=== PATIENT | female | born 1980 | race Caucasian/White ===

== ENCOUNTER → 2016-08-10 | Outpatient (CLI) | payer BC, MEDICAID ==
--- NOTE | 2016-08-10 11:02 | RADIOLOGY REPORT (SQ) ---
EXAM DESCRIPTION: U/S ABDOMEN LIMITED W/O DOP COMPLETED DATE/TIME: 08/10/2016 10:35 am REASON FOR STUDY: RUQ PAIN R10.11 RIGHT UPPER QUADRANT PAIN COMPARISON: None. TECHNIQUE: Dynamic and static grayscale images acquired of the abdomen and recorded on PACS. Additio nal selected color Doppler and spectral images recorded. LIMITATIONS: None. FINDINGS: PANCREAS: No masses. Visualized pancreatic duct normal caliber. LIVER: 16.1 cm. Normal echotexture. LIVER VASCULATURE: Normal directional flow of the main portal vein and hepatic veins. GALLBLADDER: No stones. Normal wall thickness. No pericholecystic fluid. ULTRASOUND-DETECTED WASHINGTON'S SIGN: Negative. INTRAHEPATIC DUCTS AND COMMON DUCT: Common bile duct is normal at 4 mm. No intrahepatic ductal dilat ation is present. INFERIOR VENA CAVA: Normal flow. AORTA: No aneurysm. RIGHT KIDNEY: Normal size, 10.7 cm. There is slight thinning of the renal cortex. There is increas ed echogenicity of the medullary pyramids. There is no hydronephrosis or hydroureter. PERITONEAL AND RIGHT PLEURAL SPACE: No ascites or effusions. OTHER: No other significant findings. IMPRESSION: Possible medullary sponge kidney. No other abnormality is seen. TECHNICAL DOCUMENTATION: JOB ID: [id number] [employer]- All Rights Reserved
== END ==
LOC: RAD 09:04
PROVIDERS: ATTEND Family Medicine
DX: R10.11 Right upper quadrant pain (principal)
CPT/HCPCS: 76705

== ENCOUNTER → 2016-08-17 | Outpatient (CLI) | payer BC, MEDICAID ==
--- NOTE | 2016-08-17 16:06 | RADIOLOGY REPORT (SQ) ---
EXAM DESCRIPTION: NM HIDA SCAN WITH CCK COMPLETED DATE/TIME: 08/17/2016 2:26 pm REASON FOR STUDY: ABDOMINAL PAIN R10.9 UNSPECIFIED ABDOMINAL PAIN COMPARISON: Abdominal ultrasound 08/10/2016 RADIONUCLIDE AND DOSE: DOSAGE RADIONUCLIDE: 5.3 millicuries Tc99m Mebrofenin. DOSAGE CCK: 1.4 micrograms. DOSAGE MORPHINE: Not required. The route of agent administration: Intravenous TECHNIQUE: Serial imaging right upper quadrant up to 60 minutes following injection of radionuclide. CCK injected after gallbladder visualized. LIMITATIONS: None. FINDINGS: LIVER: Normal visualization without areas of photopenia. INTRAHEPATIC BILE DUCTS: Normal visualization COMMON BILE DUCT: Normal visualization GALLBLADDER: Normal visualization. Calculated ejection fraction of 29%. Normal range is greater th an 35%. PHYSICAL RESPONSE: Patients presenting complaint was reproduced. IV CCK reproduced the patient's sy mptoms of right upper quadrant cramping and nausea. Imaging demonstrates reflux of biliary activity into the stomach after IV CCK OTHER: No other significant finding. IMPRESSION: The cystic duct or common duct obstruction IV CCK reproduced the patient's symptoms. There was reflux of biliary activity into the stomach. De pressed gallbladder ejection fraction of 29% TECHNICAL DOCUMENTATION: JOB ID: [id number] [employer]- All Rights Reserved
== END ==
LOC: RAD 11:55
PROVIDERS: ATTEND Family Medicine
DX: R10.9 Unspecified abdominal pain (principal)
CPT/HCPCS: 78227; A9537; Q9969; J2805

== ENCOUNTER 2016-08-28 11:17 | Observation (INO) | payer BC, MEDICAID ==
[~2016-08-28 11:17] MED LIST: DEXAMETHASONE SOD PHOSPHATE INJ 4 MG/1 ML VIAL ONE; GLYCOPYRROLATE INJ 0.4 MG/2 ML VIAL ONE; KETOROLAC TROMETHAMINE 60 MG/2 ML SDV ONE; LIDOCAINE 2% INJ-PF (20 MG/ML) 10 ML AMPUL ONE; NEOSTIGMINE METHYLSULFATE 10 MG/10 ML VIAL ONE; ONDANSETRON HCL INJ/PF 4 MG/2 ML SDV ONE; ROCURONIUM BROMIDE INJ 50 MG/5 ML VIAL IV ONE; SUCCINYLCHOLINE CHLORIDE INJ 200 MG/10 ML VIAL ONE
[2016-08-28] MEDS ORDERED: RINGERS SOLUTION,LACTATED 1,000 ML IV PRN (11:45)
[2016-08-28] MEDS ORDERED: FENTANYL CITRATE INJ/PF 100 MCG/2 ML AMPUL ONE ×3 (13:08→16:54)
[2016-08-28] MEDS ORDERED: MIDAZOLAM 2 MG/2 ML INJ ONE ×2 (13:08→15:04)
[2016-08-28] MEDS ORDERED: HYDROMORPHONE HCL INJ/PF 2 MG/ML AMPULE ONE (13:08)
[2016-08-28] MEDS ORDERED: PROPOFOL INJ 200 MG/20 ML VIAL IV ONE (13:09)
[2016-08-28] MEDS ORDERED: ACETAMINOPHEN 0 ML IV ONE (13:09)
[2016-08-28] MEDS ORDERED: BUPIVACAINE HCL 0.25 % INJ/PF (2.5 MG/1 ML) 30 ML VIAL ONE (13:22)
[2016-08-28] MEDS ORDERED: CIPROFLOXACIN 400 MG/D5W RTU 400 MG/200 ML RTUPB IV ONE (14:42)
[2016-08-28] MEDS ORDERED: EPHEDRINE SULFATE INJ 50 MG/1 ML AMPULE ONE (15:04)
[2016-08-28] MEDS ORDERED: FENTANYL CITRATE INJ/PF 250 MCG/5 ML AMPULE ONE (15:04)
[2016-08-28] MEDS ORDERED: ACETAMINOPHEN 100 ML IV ONE (15:05)
[2016-08-28] MEDS ORDERED: DEXMEDETOMIDINE INJ 80 MCG/20 ML VIAL IV ONE (15:05)
[2016-08-28 15:12] LABS: ALANINE AMINOTRANSFERASE 24 U/L (9-52); ALKALINE PHOSPHATASE 75 U/L (38-126); ASPARTATE AMINO TRANSFERASE 12 U/L (14-36); BILIRUBIN,DIRECT 0.3 mg/dL (0.0-0.4); BILIRUBIN,TOTAL 0.5 mg/dL (0.2-1.3); TOTAL PROTEIN 6.1 g/dL (6.3-8.2)
[2016-08-28] MEDS ORDERED: DIPHENHYDRAMINE HCL 50 MG/ML VIAL IV PRN (15:59)
[2016-08-28] MEDS ORDERED: FENTANYL CITRATE INJ/PF 100 MCG/2 ML AMPUL IV PRN ×3 (15:59)
[2016-08-28] MEDS ORDERED: PROMETHAZINE HCL INJ 25 MG/1 ML VIAL IV PRN ×2 (15:59)
[2016-08-28] MEDS ORDERED: MORPHINE SULFATE 10 MG/ML INJ IV PRN (15:59)
--- NOTE | 2016-08-28 16:26 | Operative Report ---
Operative Report DATE OF SURGERY: 08/28/16 PREOPERATIVE DIAGNOSIS: Biliary dyskinesia POSTOPERATIVE DIAGNOSIS: same OPERATION: Laparoscopic cholecystectomy SURGEON: DAYANA OLIVO ANESTHESIA: GA TISSUE REMOVED OR ALTERED: 1 gallbladder with contents COMPLICATIONS: None ESTIMATED BLOOD LOSS: Scant INTRAOPERATIVE FINDINGS: See below PROCEDURE: The patient was seen in the preop area for discussion with the patient and her mother about the plans for laparoscopic cholecystectomy. Explained the objectives of the operation, as well as an explanation of the wrist benefits and alternatives. She expressed understanding her to proceed to her procedure patient was placed on the gurney and taken to the operating room where general anesthesia was induced. That was exposed, prepped draped sterile fashion his medication set up for laparoscopic cholecystectomy. Surgical plan surgical timeout was conducted. A supraumbilical vertical incision made with a knife and Veress needle inserted peritoneal cavity and pneumoperitoneum established. The Veress needle was removed, 5 mm port was inserted and a 5 mm flexible viewing scope was inserted. Under direct visualization 3 additional ports were placed all in to the peritoneum without incident. Were in the subxiphoid and right upper quadrant positions. The gallbladder was distended and aspirated of approximately 20 cc of bile. Gallbladder retractors were placed on the fundus and infundibulum, and the neck of the gallbladder its junction with the cystic duct was dissected out. The anatomy here was typical. The cystic artery and cystic duct were dissected out in their entirety clearly visualized. Critical view was obtained. Multiple photos were taken. Cystic artery was clipped twice once distally twice proximally and then divided with scissors. The cystic duct was similarly clipped twice proximally once distally divided with scissors. Gallbladder removed from the liver bed using hook cautery dissection. The specimen was brought the patient to the supraumbilical port site. We returned the peritoneal cavity checked for bleeding there was none. We felt the operation was complete. Sponge and counts correct. All ports removed under direct visualization pneumoperitoneum evacuated wounds closed with 3-0 Vicryl benzoin Steri-Strips. Tolerated postop procedure well, extubated and taken to the recovery room in stable condition facility
[2016-08-28] MEDS ORDERED: OXYCODONE-ACETAMINOPHEN 5-325 MG TABLET PO PRN (20:31)
[2016-08-28 21:31] VITALS: BP 114/88
[2016-08-29] MEDS ORDERED: LANSOPRAZOLE 30 MG TAB.RAP.DR PO SCH (08:00)
--- NOTE | 2016-08-31 07:03 | DISCHARGE SUMMARY E ---
Discharge Summary NAME: YVROSE PEDERSON : 1980 AGE: 36Y ADMITTED: 08/28/2016 DISCHARGED: 08/28/2016 REASON FOR ADMISSION: Biliary dyskinesia. SUMMARY OF HOSPITALIZATION: The patient is a 36-year-old white female with a history of biliary dyskinesia who was brought into the hospital for interval cholecystectomy. Please see admission history and physical for complete record of her past history. The patient was taken to the operating room by Dr. Marin where she underwent laparoscopic cholecystectomy. Postoperatively, the patient did well, had no complications. Final path report showed cholesterolosis. By the evening of the first hospital day, she was felt to be ready for discharge home. FINAL DIAGNOSIS: Biliary dyskinesia status post laparoscopic cholecystectomy by Dr. Marin. DISPOSITION: The patient will be discharged home in the care of her family. Follow up with Dr. Marin or other member of [facility] in approximately 1-2 weeks. She will take pain medication as needed, shower, and resume any preoperative medications. DICTATING PHYSICIAN: DAYANA MARIN M.D. [id number] PHY#: [id number] ID: [id number] JOB#: [id number] ACCT: [id number] cc:DAYANA MARIN M.D. >
== END 2016-08-28 21:55 | disposition home or self-care (01) ==
LOC: 4S 11:17
PROC: 0FT44ZZ Resection of Gallbladder, Percutaneous Endoscopic Approach (ICD-10-PCS; principal; 2016-08-28 13:30)
DX: K82.8 Other specified diseases of gallbladder (principal); K81.1 Chronic cholecystitis; K21.9 Gastro-esophageal reflux disease without esophagitis; Z87.891 Personal history of nicotine dependence; Z79.899 Other long term (current) drug therapy
CPT/HCPCS: 36415; 81025; 80076; 88304 ×2; 47562; J2250; J3490 ×2; J1100; J1885; J3010 ×2; J0330; J2405; J2704; J0744; J0131; 790; J1170

== ENCOUNTER 2017-06-15 15:10 | Emergency (ER) | payer BC, MEDICAID ==
--- NOTE | 2017-06-15 15:54 | RADIOLOGY REPORT (SQ) ---
EXAM DESCRIPTION: CHEST SINGLE VIEW COMPLETED DATE/TIME: 06/15/2017 3:28 pm REASON FOR STUDY: STROKE ALERT COMPARISON: None. EXAM PARAMETERS: NUMBER OF VIEWS: One view. TECHNIQUE: Single frontal radiographic view of the chest acquired. RADIATION DOSE: NA LIMITATIONS: None. FINDINGS: LUNGS AND PLEURA: No opacities, masses or pneumothorax. No pleural effusion. MEDIASTINUM AND HILAR STRUCTURES: No masses. Contour normal. HEART AND VASCULAR STRUCTURES: Heart normal in size. Normal vasculature. BONES: No acute findings. HARDWARE: None in the chest. OTHER: No other significant finding. IMPRESSION: NO ACUTE RADIOGRAPHIC FINDING IN THE CHEST. TECHNICAL DOCUMENTATION: JOB ID: [id number] [employer] All Rights Reserved Reading location - IP/workstation name: [email or web address]
[2017-06-15 15:55] LABS: ABSOLUTE EOSINOPHILS # (AUTO) 0.1 10^3/uL (0.0-0.6); ABSOLUTE LYMPHOCYTES (AUTO) 1.2 10^3/uL (0.5-4.7); ABSOLUTE MONOCYTES (AUTO) 0.8 10^3/uL (0.1-1.4); ABSOLUTE NEUT (AUTO) 5.3 10^3/uL (1.7-8.2); BASOPHILS % (AUTO) 0.4 % (0-2); EOSINOPHILS % (AUTO) 0.8 % (0-6); HEMATOCRIT 42.8 % (36.0-47.0); HEMOGLOBIN 14.9 g/dL (12.0-15.5); LYMPHOCYTES % (AUTO) 16.3 % (13-45); MEAN CORPUSCULAR HEMOGLOBIN 28.8 pg (27.0-33.4); MEAN CORPUSCULAR HGB CONC 34.8 g/dL (32.0-36.0); MEAN CORPUSCULAR VOLUME 83 fl (80-97); MONOCYTES % (AUTO) 10.6 % (3-13); PLATELET COUNT 258 10^3/uL (150-450); RED BLOOD COUNT 5.16 10^6/uL (3.72-5.28); RED CELL DISTRIBUTION WIDTH 12.8 % (11.5-14.0); SEGMENTED NEUTROPHILS % (AUTO) 71.9 % (42-78); TOTAL CELLS COUNTED % (AUTO) 100 %; WHITE BLOOD COUNT 7.4 10^3/uL (4.0-10.5)
--- NOTE | 2017-06-15 15:55 | RADIOLOGY REPORT (SQ) ---
EXAM DESCRIPTION: CT HEAD WITHOUT COMPLETED DATE/TIME: 06/15/2017 3:40 pm REASON FOR STUDY: right side weakness r/o stroke COMPARISON: None. TECHNIQUE: Axial images acquired through the brain without intravenous contrast. Images reviewed wi th bone, brain and subdural windows. Additional sagittal and coronal reconstructions were generated. Images stored on PACS. All CT scanners at this facility use dose modulation, iterative reconstruction, and/or weight based d osing when appropriate to reduce radiation dose to as low as reasonably achievable (ALARA). [facility]: Dose Right [facility]: CareDose [facility]: Dose Right [facility]: Teradose 4D [facility]: Smart DefenCall RADIATION DOSE: CT Rad equipment meets quality standard of care and radiation dose reduction techniq ues were employed. CTDIvol: 53.2 mGy. DLP: 991 mGy-cm. mGy. LIMITATIONS: None. FINDINGS: VENTRICLES: Normal size and contour. CEREBRUM: No masses. No hemorrhage. No midline shift. No evidence for acute infarction. Normal gra y/white matter differentiation. No areas of low density in the white matter. CEREBELLUM: No masses. No hemorrhage. No alteration of density. No evidence for acute infarction. EXTRAAXIAL SPACES: No fluid collections. No masses. ORBITS AND GLOBE: No intra- or extraconal masses. Normal contour of globe without masses. CALVARIUM: No fracture. PARANASAL SINUSES: No fluid or mucosal thickening. SOFT TISSUES: No mass or hematoma. OTHER: No other significant finding. IMPRESSION: NORMAL BRAIN CT WITHOUT CONTRAST. EVIDENCE OF ACUTE STROKE: NO. COMMENT: Quality ID # [id number]: Final reports with documentation of one or more dose reduction techniques (e.g., Automated exposure control, adjustment of the mA and/or kV according to patient size, use of iterative reconstruction technique) TECHNICAL DOCUMENTATION: JOB ID: [id number] [employer]- All Rights Reserved Reading location - IP/workstation name: [email or web address]
--- NOTE | 2017-06-15 16:00 | ER Document Report ---
ED General - General Chief Complaint: S/S of Possible Stroke Stated Complaint: FACE,ARM WEAKNESS Time Seen by Provider: 06/15/17 15:45 Mode of Arrival: Ambulatory Information source: Patient - History of she that she cannot her headache started last night on the left side morning because her last night she is seen was so, Relative - 14 he came in as a nonradiating as a result was on headache resolved is is EKG changes 6 hours of negative is so negative is Cannot obtain history due to: Altered mental status Notes: 37-year-old female with a history of migraine headaches presents with complaint of headache and right-sided weakness. is at the bedside and provides the majority of the history. states that patient began complaining of a left-sided headache yesterday evening. 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 He states that around 2 PM he received a text message from her saying that her headache was increasing. When he talked to the patient on the phone her speech was slurred. Patient states that the last time she was able to use her right arm and leg was approximately 2 PM. She denies any recent head injury or prior similar symptoms. TRAVEL OUTSIDE OF THE [place] IN LAST 30 DAYS: No - HPI Onset: Yesterday Onset/Duration: Gradual Associated symptoms: Headache, Weakness. denies: Chest pain, Fever, Nausea, Vomiting, Shortness of breath Exacerbated by: Denies Relieved by: Denies Similar symptoms previously: No Recently seen / treated by doctor: No - Related Data Allergies/Adverse Reactions: meperidine HCl [From Demerol] Allergy (Verified 01/17/12 22:09) metoclopramide HCl [From Reglan] Allergy (Verified 01/17/12 22:09) Penicillins Allergy (Verified 01/17/12 22:09) Past Medical History - General Information source: Patient, Relative - Social History Smoking Status: Never Smoker Cigarette use (# per day): No Chew tobacco use (# tins/day): No Smoking Education Provided: No Frequency of alcohol use: None Drug Abuse: None Lives with: Family, Spouse/Significant other Family History: Reviewed & Not Pertinent Pulmonary Medical History: Reports: Hx Bronchitis Neurological Medical History: Reports: Hx Migraine Renal/ Medical History: Reports: Hx Ovarian Cysts GI Medical History: Reports: Hx Gastroesophageal Reflux Disease Past Surgical History: Reports: Hx Tonsillectomy - Immunizations Immunizations up to date: Yes Hx Diphtheria, Pertussis, Tetanus Vaccination: Yes Review of Systems - Review of Systems Constitutional: Weakness. denies: Fever EENT: Blurred vision Cardiovascular: denies: Chest pain Respiratory: denies: Cough, Short of breath Gastrointestinal: denies: No symptoms reported Genitourinary: No symptoms reported Female Genitourinary: No symptoms reported Musculoskeletal: No symptoms reported Skin: No symptoms reported Hematologic/Lymphatic: No symptoms reported Neurological/Psychological: Sensory change, Weakness, Loss of power, Paralysis, Headaches, Speech impairment, Numbness Physical Exam - Vital signs Vitals: Pulse Resp BP Pulse Ox 85 21 H 144/106 H 100 06/15/17 15:33 06/15/17 15:33 06/15/17 15:33 06/15/17 15:33 Interpretation: Normal, Hypertensive, Tachypneic. No: Tachycardic - General General appearance: Alert In distress: Mild - HEENT Head: Normocephalic, Atraumatic Eyes: Normal Conjunctiva: Normal Extraocular movements intact: Yes Pupils: PERRL Tympanic membrane: Normal Sinus: Normal Nasal: Normal Mucous membranes: Normal Pharynx: Normal - Respiratory Respiratory status: No respiratory distress Chest status: Nontender Breath sounds: Normal Chest palpation: Normal - Cardiovascular Rhythm: Regular Heart sounds: Normal auscultation Murmur: No Pulses: Normal: Radial - Abdominal Inspection: Normal Distension: No distension Bowel sounds: Normal Tenderness: Nontender Organomegaly: No organomegaly - Back Back: Normal, Nontender - Extremities General upper extremity: Normal inspection, Nontender, Normal color, Normal ROM , Normal temperature General lower extremity: Normal inspection, Nontender, Normal color, Normal ROM , Normal temperature, Normal weight bearing. No: Khushi's sign - Neurological Neuro grossly intact: Yes Cognition: Normal Orientation: AAOx4 Awilda Coma Scale Eye Opening: Spontaneous Wadsworth Coma Scale Verbal: Oriented Awilda Coma Scale Motor: Obeys Commands Wadsworth Coma Scale Total: 15 Speech: Normal Cranial nerves: Other - See NIH Motor strength normal: LUE, RUE, LLE, RLE Sensory: Normal - Psychological Associated symptoms: Normal mood, Tearful Course - Re-evaluation Re-evalutation: Laboratory 06/15/17 06/15/17 06/15/17 15:42 15:42 15:42 WBC 7.4 RBC 5.16 Hgb 14.9 Hct 42.8 MCV 83 MCH 28.8 MCHC 34.8 RDW 12.8 Plt Count 258 Seg Neutrophils % 71.9 Lymphocytes % 16.3 Monocytes % 10.6 Eosinophils % 0.8 Basophils % 0.4 Absolute Neutrophils 5.3 Absolute Lymphocytes 1.2 Absolute Monocytes 0.8 Absolute Eosinophils 0.1 Absolute Basophils 0.0 PT 13.3 INR 0.94 APTT 29.7 Sodium 140.6 Potassium 3.8 Chloride 104 Carbon Dioxide 24 Anion Gap 13 BUN 7 Creatinine 0.56 Est GFR ( Amer) > 60 Est GFR (Non-Af Amer) > 60 Glucose 96 POC Glucose Calcium 10.5 H Total Bilirubin 1.1 Direct Bilirubin 0.2 Neonat Total Bilirubin Not Reportable Neonat Direct Bilirubin Not Reportable Neonat Indirect Bili Not Reportable AST 16 ALT 20 Alkaline Phosphatase 78 Creatine Kinase 51 CK-MB (CK-2) Troponin I Total Protein 7.3 Albumin 5.0 06/15/17 06/15/17 15:42 15:58 WBC RBC Hgb Hct MCV MCH MCHC RDW Plt Count Seg Neutrophils % Lymphocytes % Monocytes % Eosinophils % Basophils % Absolute Neutrophils Absolute Lymphocytes Absolute Monocytes Absolute Eosinophils Absolute Basophils PT INR APTT Sodium Potassium Chloride Carbon Dioxide Anion Gap BUN Creatinine Est GFR ( Amer) Est GFR (Non-Af Amer) Glucose POC Glucose 97 Calcium Total Bilirubin Direct Bilirubin Neonat Total Bilirubin Neonat Direct Bilirubin Neonat Indirect Bili AST ALT Alkaline Phosphatase Creatine Kinase CK-MB (CK-2) 0.59 Troponin I < 0.012 Total Protein Albumin Chest X-Ray 06/15/17 00:00 IMPRESSION: NO ACUTE RADIOGRAPHIC FINDING IN THE CHEST. Head CT 06/15/17 00:00 IMPRESSION: NORMAL BRAIN CT WITHOUT CONTRAST. EVIDENCE OF ACUTE STROKE: NO. Head CTA 06/15/17 16:00 IMPRESSION: NO CTA EVIDENCE OF STENOSIS OR ANEURYSM OF THE [place] OF [place]. Neck CTA 06/15/17 16:00 IMPRESSION: NORMAL CTA OF THE EXTRA-CRANIAL CAROTID AND VERTEBRAL ARTERIES. 06/15/17 16:05 NIH performed and scored 15. [facility] contacted. 06/15/17 16:[address] Zavala from [facility] who believes the patient is a good candidate for TPA. TPA ordered at a total of 54 mg with 5.4 mg as a bolus and 46 mg over the remaining hour. Both patient and were in agreement of the administration of TPA. I did discuss the risks of potential bleeding. Patient has no contraindications at this time. 06/15/17 17:29 Transport team here. Patient appears more alert and awake. 06/16/17 00:15 37-year-old female with a history of migraine headaches presents with complaint of left-sided headache and right-sided weakness. Patient is unable to communicate and the majority of history is provided by the . reports that headache started last night. He states that she complained of left -sided headache and went to bed. 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 Around 2 PM he received a text saying that her headache was worsening and that she was experiencing right-sided weakness. Upon arrival patient is minimally verbal, unable to move her right arm or leg and reporting decreased sensation. Initial NIH score is 15. CT was immediately obtained and showed no acute process. CTA of the head and neck also were obtained and showed no acute process. Spoke to Dr. Zavala neurology on-call at [facility] who believes patient is an appropriate TPA candidate. She has no contraindications to TPA. Discussed risks and benefits of TPA with the patient and her who are agreeable at this time. TPA infusion was administered with a 5.4 mg bolus and remaining 46 mg given over an hour. Patient was transferred to [facility] in stable condition. - Vital Signs Vital signs: Temp Pulse Resp BP Pulse Ox 98.7 F 85 22 H 144/106 H 96 06/15/17 17:25 06/15/17 15:33 06/15/17 17:01 06/15/17 17:01 06/15/17 17:01 - Laboratory Result Diagrams: 06/15/17 15:42 06/15/17 15:42 Laboratory results interpreted by me: 06/15/17 15:42 Calcium 10.5 H Critical Care Note - Critical Care Note Total time excluding time spent on procedures (mins): 40 - minutes of critical care time spent in direct contact evaluating and reevaluating the patient, treating symptoms, reviewing labs and studies and speaking with family and consultants excluding any procedures Discharge - Discharge Disposition: Pending Sale To [facility] Referrals: BRANDIN GARCIA MD [Primary Care Provider] - Follow up as needed ED NIH Stroke Scale - NIH Stroke Scale When completed:: Before Alteplase *: 1. NIH scale should be completed with appropriate accompanying assessment tools. *: 2. The NIH should reflect what the patient is capable of doing and should not be coached by the clinician. 1a. Level of Consciousness: 0=Alert;keenly responsive -: 1=Drowsy -: 2=Obtunded -: 3=Coma/unresponsive or reflex to noxious stimuli. 1a. Responses: 1 1b. Orientation Questions: a. What month is it? -: b. How old are you? -: 0=Answers both questions correctly. -: 1=Answers one question correctly or patient is intubated or has orotracheal trauma. -: 2=Answers neither question correctly. 1b. Responses: 0 1c. Response to commands: a. Open and close eyes? -: b. Second Operator and release hand? -: Credit is given despite weakness. Demonstration of task is permitted. Substitute command if hands cannot be used. -: 0=Performs both tasks correctly -: 1=Performs one task correctly -: 2=Performs neither task correctly 1c. Responses: 0 2. Gaze: Establish eye contact and instruct patient to "Follow my finger" -: 0=Normal -: 1=Partial gaze palsy. Gaze is abnormal in one or both eyes, but where forced deviation or total gaze paresis is not present. -: 2=Forced deviation or total gaze paresis. 2. Responses: 0 3. Visual Addison: Sees fingers in all four quadrants. -: 0=No visual loss. -: 1=Partial hemianopsia. -: 2=Complete hemianopsia. -: 3=Bilateral hemianopsia (including Cortical blindness) 3. Responses: 0 4. Facial Movement: Instruct patient to: -: a. Show me your teeth -: b. Raise your eyebrows -: c. Close your eyes -: d. Smile -: 0=Normal symmetrical movement -: 1=Minor paralysis (flattened nasolabial fold, asymmetry on smiling). -: 2=Partial paralysis (total or near total paralysis of lower face). -: 3=Complete paralysis of upper and lower face 4. Responses: 2 5. Motor functions (left arm): Alternate sides and extend each arm with palms down (90 degrees if sitting or 45 degrees for supine). -: 0=No drift;limb holds for full 10 seconds. -: 1=Drift; limb holds but drifts down before full 10 seconds, but does not hit bed. -: 2=Some effort against gravity; limb cannot get to or maintain position. -: 3=No effort against gravity; limb falls. -: 4=No movement. -: UN=Amputation, joint fusion, explain in comments. 5. Responses (left arm): 0 5. Motor Functions (right arm): Alternate sides and extend each arm with palms down (90 degrees if sitting or 45 degrees for supine). -: 0=No drift;limb holds for full 10 seconds. -: 1=Drift; limb holds but drifts down before full 10 seconds, but does not hit bed. -: 2=Some effort against gravity; limb cannot get to or maintain position. -: 3=No effort against gravity; limb falls. -: 4=No movement. -: UN=Amputation, joint fusion, explain in comments. 5. Responses (right arm): 4 6. Motor Functions (left leg): With patient lying supine, alternate sides and extend each leg (30 degrees always while supine). -: 0=No drift, leg holds position for full 5 seconds -: 1=Drift; leg falls before full 5 seconds but does not hit bed. -: 2=Some effort against gravity, leg falls to bed but some effort against gravity. -: 3=No effort against gravity, leg falls to bed immediately. -: 4=No movement. -: UN=Amputation, joint fusion; explain in comments. 6. Responses (left leg): 0 6. Motor Functions (right leg): With patient lying supine, alternate sides and extend each leg (30 degrees always while supine). -: 0=No drift, leg holds position for full 5 seconds -: 1=Drift; leg falls before full 5 seconds but does not hit bed. -: 2=Some effort against gravity, leg falls to bed but some effort against gravity. -: 3=No effort against gravity, leg falls to bed immediately. -: 4=No movement. -: UN=Amputation, joint fusion; explain in comments. 6. Responses (right leg): 4 7. Limb Ataxia: With eyes open instruct patient to: -: a. "Touch your finger to your nose". -: b. "Touch your heel to your boswell" -: 0=Absent -: 1=Present in one limb. -: 2=Present in two limbs. -: UN=Amputation or joint fusion; explain in comments. 7. Responses: 1 7. If ataxia present choose as appropriate: Right arm 8. Sensory: Test sensation using pinprick or noxious stimuli. Test as many body parts as possible. -: 0=Normal;no sensory loss -: 1=Mile to moderate sensory loss (patient feels pin prick but is less sharp on affected side). -: 2=Severe or total sensory loss. 8. Responses: 1 9. Best Language: Instruct patient to: -: a. "Describe what you see in this picture." -: b. "Name the items in this picture." -: c. "Read these sentences." -: 0=No aphasia, normal -: 1=Mild to moderate aphasia. -: 2=Severe aphasia -: 3=Mute, global aphasia, no usable speech or auditory comprehension. 9. Responses: 1 10. Articulation, Dysarthia: Instruct patient to: -: "Read these words" or "Repeat these words" -: 0=Normal -: 1=Mild to moderate; patient may slur some words but can be understood without difficulty. -: 2=Severe; patients speech so slurred as to be unintelligible in the absence of dysphasia. -: UN=Intubated or other physical barrier, explain in comments. 10. Responses: 1 11. Extinction or inattention: 0=No abnormality -: 1= Visual, tactile, auditory, spatial, or personal inattention or extinction to bilateral simulation in one or the sensory modalities. -: 2=Profound chely-inattention or chely-inattention to more than one modality; does not recognize own hand. 11. Responses: 0 - 1600 Total Score: 15
[2017-06-15 16:04] LABS: INTERNATIONAL RATION (INR) 0.94; PARTIAL THROMBOPLASTIN TIME 29.7 SEC (23.5-35.8); PROTHROMBIN TIME 13.3 SEC (11.4-15.4)
[2017-06-15 16:13] LABS: ALANINE AMINOTRANSFERASE 20 U/L (9-52); ALKALINE PHOSPHATASE 78 U/L (38-126); ANION GAP 13 (5-19); ASPARTATE AMINO TRANSFERASE 16 U/L (14-36); BILIRUBIN,DIRECT 0.2 mg/dL (0.0-0.4); BILIRUBIN,TOTAL 1.1 mg/dL (0.2-1.3); BLOOD UREA NITROGEN 7 mg/dL (7-20); CALCIUM 10.5 mg/dL (8.4-10.2); CARBON DIOXIDE 24 mmol/L (22-30); CHLORIDE 104 mmol/L (98-107); CREATINE KINASE 51 U/L (30-135); GLUCOSE 96 mg/dL (75-110); POTASSIUM 3.8 mmol/L (3.6-5.0); SODIUM 140.6 mmol/L (137-145); TOTAL PROTEIN 7.3 g/dL (6.3-8.2)
[2017-06-15 16:25] LABS: CREATINE KINASE MB 0.59 ng/mL (<4.55)
[2017-06-15 16:28] LABS: TROPONIN I < 0.012 ng/mL
--- NOTE | 2017-06-15 16:33 | RADIOLOGY REPORT (SQ) ---
EXAM DESCRIPTION: CTA HEAD COMPLETED DATE/TIME: 06/15/2017 4:19 pm REASON FOR STUDY: stroke sx's COMPARISON: None. TECHNIQUE: Post IV contrast scanning, thin section axial imaging through the brain to evaluate the a rterial structures. Source and MIP images are saved and reviewed on PACS. Advanced 3D imaging as volume-rendering, MIPs, SSD performed? yes All CT scanners at this facility use dose modulation, iterative reconstruction, and/or weight based d osing when appropriate to reduce radiation dose to as low as reasonably achievable (ALARA). [facility]: Dose Right [facility]: CareDose [facility]: Dose Right [facility]: Teradose 4D [facility]: [email or web address] CONTRAST TYPE AND DOSE: See separate report of the same date. RENAL FUNCTION: See separate report of the same date. LIMITATIONS: None. FINDINGS: [place]: The anterior, middle, posterior cerebral arteries are all patent. No ev idence of aneurysm or focal stenosis. POSTERIOR CIRCULATION: The distal vertebral arteries are patent as is the basilar artery. No aneurysm . BRAIN: Normal. BONES: Intact as visualized. SINUSES: No fluid or mucosal thickening. OTHER: No other significant finding. IMPRESSION: NO CTA EVIDENCE OF STENOSIS OR ANEURYSM OF THE [place]. TECHNICAL DOCUMENTATION: JOB ID: [id number] Quality ID # [id number]: Final reports with documentation of one or more dose reduction techniques (e.g., Au tomated exposure control, adjustment of the mA and/or kV according to patient size, use of iterative reconstruction technique) 2010 [employer]- All Rights Reserved Reading location - IP/workstation name: [employer] [email or web address]
--- NOTE | 2017-06-15 16:35 | RADIOLOGY REPORT (SQ) ---
EXAM DESCRIPTION: CTA NECK COMPLETED DATE/TIME: 06/15/2017 4:19 pm REASON FOR STUDY: stroke sx's COMPARISON: None. TECHNIQUE: Axial dynamic scanning technique with dynamic contrast enhancement through the extra-aircraft designer nial carotid and vertebral arteries. Multiplanar reconstruction. 3-D MIPS and Volume-rendered imag es acquired at the workstation and saved to PACS. Images are reviewed in soft tissue, bone, lung w indows. All CT scanners at this facility use dose modulation, iterative reconstruction, and/or weight based d osing when appropriate to reduce radiation dose to as low as reasonably achievable (ALARA). [facility]: Dose Right [facility]: CareDose [facility]: Dose Right [facility]: Teradose 4D [facility]: [employer] CONTRAST TYPE AND DOSE: contrast/concentration: Isovue 370.00 mg/ml; Total Contrast Delivered: 70.0 ml; Total Saline Delivered: 69.0 ml RENAL FUNCTION: None required. The patient is less than 50 years old. LIMITATIONS: None. FINDINGS: AORTIC ARCH: Normal three-vessel origin. Bilateral subclavian arteries are patent. No d issection. RIGHT CAROTIDS: Patent common, internal and external carotid arteries without suggestion of significa nt stenosis or irregular plaque. No dissection. RIGHT VERTEBRAL: Patent. No dissection. LEFT CAROTIDS: Patent common, internal and external carotid arteries without suggestion of significan t stenosis or irregular plaque. No dissection. LEFT VERTEBRAL: Patent. No dissection. OTHER: No other significant finding. OTHER: 3-D reconstructions confirm findings. IMPRESSION: NORMAL CTA OF THE EXTRA-CRANIAL CAROTID AND VERTEBRAL ARTERIES. COMMENT: Quality ID #[id number]: Measurements of distal internal carotid diameter were used as the denomina tor for stenosis measurement. TECHNICAL DOCUMENTATION: JOB ID: [id number] Quality ID # [id number]: Final reports with documentation of one or more dose reduction techniques (e.g., Au tomated exposure control, adjustment of the mA and/or kV according to patient size, use of iterative reconstruction technique) 2010 [employer]- All Rights Reserved Reading location - IP/workstation name: [email or web address]
[2017-06-15] MEDS ORDERED: ALTEPLASE INJ 100 MG VIAL IV ONE (16:46)
[2017-06-15 17:51] VITALS: BP 144/106
--- NOTE | 2017-06-15 18:41 | EKG REPORT ---
SEVERITY:- BORDERLINE ECG - SINUS RHYTHM BORDERLINE T ABNORMALITIES, ANTERIOR LEADS : Confirmed by: Terrell Malloy MD 15-Jun-2017 18:41:13
== END 2017-06-15 18:10 | disposition short-term general hospital (02) ==
LOC: ER 15:10
DX: I63.9 Cerebral infarction, unspecified (principal); R41.82 Altered mental status, unspecified; R51 Headache; R53.1 Weakness; R47.81 Slurred speech; H53.8 Other visual disturbances; R29.715 NIHSS score 15
CPT/HCPCS: 93005; 99291; 96365; 36415; 82553; 82962; 82550; 85025; 85610; 85730; 80053; 84484; 71045; 70450; 70496; 70498; 93010; J2997

== ENCOUNTER 2018-01-22 10:00 | Emergency (ER) | payer BC ==
--- NOTE | 2018-01-22 10:16 | ER Document Report ---
ED Neuro Symptoms/Deficit - General Mode of Arrival: Wheelchair Information source: Relative TRAVEL OUTSIDE OF THE [place] IN LAST 30 DAYS: No <TIKA SHANE - Last Filed: 01/22/18 11:48> <BRUNO GROSS - Last Filed: 01/22/18 14:41> - General Chief Complaint: Altered Mental Status Stated Complaint: HEADACHE Time Seen by Provider: 01/22/18 10:11 Notes: 37-year-old female who presents to the emergency department today with complaints of right-sided hemiplegia. Significant other at bedside states that last night the patient had a headache but it seemed to be improving, this morning at 0845 she sent him a text indicating that the headache was getting worse, and at 0915 he was called from her place of employment after she had "collapsed to the floor". Patient has a history of complex migraines that results in right sided hemiplegia according to at bedside. Patient has been worked up extensively at [facility] for this. Patient was transferred from here on 06/15/2017 to evaluate for concerns of CVA. At [facility] the patient had a negative CTA head neck and CT head and was diagnosed with complex migraines. Patient is followed by the [facility] in [place]. Significant other at bedside states that once the patient's headache resolves, her symptoms resolve. (TIKA SHANE) - Related Data Allergies/Adverse Reactions: meperidine HCl [From Demerol] Allergy (Verified 01/22/18 10:05) metoclopramide HCl [From Reglan] Allergy (Verified 01/22/18 10:05) Penicillins Allergy (Verified 01/22/18 10:05) Past Medical History - General Information source: Patient - Social History Smoking Status: Unknown if Ever Smoked Cigarette use (# per day): No Frequency of alcohol use: None Drug Abuse: None Lives with: Family Family History: Reviewed & Not Pertinent Pulmonary Medical History: Reports: Hx Bronchitis Neurological Medical History: Reports: Hx Migraine Renal/ Medical History: Reports: Hx Ovarian Cysts GI Medical History: Reports: Hx Gastroesophageal Reflux Disease Past Surgical History: Reports: Hx Cholecystectomy, Hx Orthopedic Surgery - right shoulder x 2, Hx Tonsillectomy - Immunizations Immunizations up to date: Yes Hx Diphtheria, Pertussis, Tetanus Vaccination: Yes <TIKA SHANE - Last Filed: 01/22/18 11:48> Review of Systems - Review of Systems -: Yes ROS unobtainable due to patient's medical condition <TIKA SHANE - Last Filed: 01/22/18 11:48> Physical Exam <ACOSTATIKA - Last Filed: 01/22/18 11:48> <BRUNO GROSS - Last Filed: 01/22/18 14:41> - Vital signs Vitals: Temp 98.9 F 01/22/18 10:08 - Notes Notes: Physical Exam: General: Appears to be unresponsive but is in fact alert and able to answer questions by nodding head and giving thumbs up/down with left hand. HEENT: Normocephalic. Atraumatic. Patient . Oropharynx clear. Neck: Supple. No carotid bruits. Respiratory: No respiratory distress. Clear and equal breath sounds bilaterally. Cardiovascular: Regular rate and rhythm. Abdominal: Normal Inspection. No distension. Normal Bowel Sounds. Back: No deformity or step off. Extremities: Moves all four extremities. Upper extremities: Left wrist in splint. Normal ROM. Lower extremities: Normal inspection. No edema. Normal ROM. Neurological: Normal cognition. Right sided hemiplagia consistent with her previous complex migraines. Psychological: Normal affect. Normal Mood. Skin: Warm. Dry. Normal color. (TIKA SHANE) Course - Laboratory Result Diagrams: 01/22/18 10:16 01/22/18 10:16 <ACOSTATIKA - Last Filed: 01/22/18 11:48> - Laboratory Result Diagrams: 01/22/18 10:16 01/22/18 10:16 <BRUNO GROSS - Last Filed: 01/22/18 14:41> - Re-evaluation Re-evalutation: 01/22/18 12:40 Patient's headache is somewhat improved, her right hemiplegia has resolved at this time. 01/22/18 14:39 Patient is feeling much better now and smiling. Her hemiaplasia remains completely resolved and she is anxious to go home. (BRUNO GROSS) - Vital Signs Vital signs: Temp Pulse Resp BP Pulse Ox 98.9 F 12 111/71 96 01/22/18 10:08 01/22/18 13:01 01/22/18 13:01 01/22/18 13:01 - Laboratory Laboratory results interpreted by me: 01/22/18 10:16 Chloride 108 H Glucose 113 H AST 13 L Discharge <TIKA SHANE - Last Filed: 01/22/18 11:48> <BRUNO GROSS - Last Filed: 01/22/18 14:41> - Discharge Clinical Impression: Hemiplegic migraine Qualifiers: Status migrainosus presence: without status migrainosus Intractability: not intractable Qualified Code(s): G43.409 - Hemiplegic migraine, not intractable, without status migrainosus Condition: Stable Disposition: HOME, SELF-CARE Additional Instructions: You appear to have had another hemiplegic migraine headache. All your symptoms and deficits have resolved at this time. You should continue your regular medications. Follow-up with your primary care provider and your neurologist to let them know about this episode. RETURN TO THE EMERGENCY ROOM IF ANY NEW OR WORSENING SYMPTOMS. Referrals: BRANDIN GARCIA MD [Primary Care Provider] - Follow up as needed Scribe Attestation: 01/22/18 11:04 I personally performed the services described in the documentation, reviewed and edited the documentation which was dictated to the scribe in my presence, and it accurately records my words and actions. (BRUNO GROSS) Scribe Documentation - Scribe Written by More:: More Cross, 08/18/2017 1151 acting as scribe for :: Anthony <TIKA SHANE - Last Filed: 01/22/18 11:48>
[2018-01-22] MEDS ORDERED: NORMAL SALINE 1000 ML 1,000 ML IV ONE (10:19)
[2018-01-22] MEDS ORDERED: PROCHLORPERAZINE EDISYLATE INJ 10 MG/2 ML VIAL IV ONE (10:19)
[2018-01-22] MEDS ORDERED: DIPHENHYDRAMINE HCL 50 MG/ML VIAL IV ONE ×2 (10:19→12:42)
[2018-01-22] MEDS ORDERED: MAGNESIUM SULFATE/D5W 1 GM/100 ML RTUPB IV ONE ×2 (10:22→12:41)
[2018-01-22] MEDS ORDERED: KETOROLAC TROMETHAMINE INJ/PF 30 MG/1 ML SDV IV ONE ×2 (10:22→12:42)
[2018-01-22 10:28] LABS: ABSOLUTE BASOPHILS # (AUTO) 0.1 10^3/uL (0.0-0.2); ABSOLUTE EOSINOPHILS # (AUTO) 0.1 10^3/uL (0.0-0.6); ABSOLUTE LYMPHOCYTES (AUTO) 0.8 10^3/uL (0.5-4.7); ABSOLUTE MONOCYTES (AUTO) 0.6 10^3/uL (0.1-1.4); ABSOLUTE NEUT (AUTO) 2.9 10^3/uL (1.7-8.2); BASOPHILS % (AUTO) 1.4 % (0-2); EOSINOPHILS % (AUTO) 1.3 % (0-6); HEMATOCRIT 39.6 % (36.0-47.0); LYMPHOCYTES % (AUTO) 18.2 % (13-45); MEAN CORPUSCULAR HEMOGLOBIN 28.4 pg (27.0-33.4); MEAN CORPUSCULAR HGB CONC 35.3 g/dL (32.0-36.0); MEAN CORPUSCULAR VOLUME 81 fl (80-97); MONOCYTES % (AUTO) 12.6 % (3-13); PLATELET COUNT 236 10^3/uL (150-450); RED BLOOD COUNT 4.92 10^6/uL (3.72-5.28); RED CELL DISTRIBUTION WIDTH 13.3 % (11.5-14.0); SEGMENTED NEUTROPHILS % (AUTO) 66.5 % (42-78); TOTAL CELLS COUNTED % (AUTO) 100 %; WHITE BLOOD COUNT 4.4 10^3/uL (4.0-10.5)
[2018-01-22 10:48] LABS: ALANINE AMINOTRANSFERASE 10 U/L (9-52); ALBUMIN 4.6 g/dL (3.5-5.0); ALKALINE PHOSPHATASE 77 U/L (38-126); ANION GAP 12 (5-19); ASPARTATE AMINO TRANSFERASE 13 U/L (14-36); BILIRUBIN,DIRECT 0.2 mg/dL (0.0-0.4); BILIRUBIN,TOTAL 0.7 mg/dL (0.2-1.3); BLOOD UREA NITROGEN 7 mg/dL (7-20); CALCIUM 9.9 mg/dL (8.4-10.2); CARBON DIOXIDE 24 mmol/L (22-30); CHLORIDE 108 mmol/L (98-107); GLUCOSE 113 mg/dL (75-110); POTASSIUM 3.9 mmol/L (3.6-5.0); SODIUM 143.9 mmol/L (137-145)
[2018-01-22] MEDS ORDERED: MORPHINE SULFATE 10 MG/ML INJ IV ONE (11:28)
[2018-01-22] MEDS ORDERED: ONDANSETRON HCL INJ/PF 4 MG/2 ML SDV IV ONE (11:28)
[2018-01-22] MEDS ORDERED: DEXTROSE 5%-LACTATED RINGERS 1,000 ML IV ONE (12:41)
[2018-01-22 15:15] VITALS: BP 111/78
== END 2018-01-22 14:55 | disposition home or self-care (01) ==
LOC: ER 10:00
DX: G43.409 Hemiplegic migraine, not intractable, without status migrainosus (principal); R41.82 Altered mental status, unspecified; Z88.0 Allergy status to penicillin; Z88.8 Allergy status to other drugs, medicaments and biological substances
CPT/HCPCS: 96376; 99285; 96375; 96365; 96366; 36415; 82962; 83735; 85025; 80053; J1200; J1885; J2270; J3475; J0780; J2405; J7030

== ENCOUNTER 2018-11-25 11:10 | Day surgery (SDC) | payer BC ==
[~2018-11-25 11:10] MED LIST changes: -DEXAMETHASONE SOD PHOSPHATE INJ 4 MG/1 ML VIAL ONE; -GLYCOPYRROLATE INJ 0.4 MG/2 ML VIAL ONE; -KETOROLAC TROMETHAMINE 60 MG/2 ML SDV ONE; -LIDOCAINE 2% INJ-PF (20 MG/ML) 10 ML AMPUL ONE; -NEOSTIGMINE METHYLSULFATE 10 MG/10 ML VIAL ONE; -ONDANSETRON HCL INJ/PF 4 MG/2 ML SDV ONE; +PROPOFOL INJ 200 MG/20 ML VIAL IV ONE; -ROCURONIUM BROMIDE INJ 50 MG/5 ML VIAL IV ONE; -SUCCINYLCHOLINE CHLORIDE INJ 200 MG/10 ML VIAL ONE
[2018-11-25] MEDS ORDERED: ONDANSETRON HCL INJ/PF 4 MG/2 ML SDV ONE (12:06)
[2018-11-25] MEDS: FENTANYL CITRATE INJ/PF 100 MCG/2 ML AMPUL ONE ×2 (12:10→12:18)
[2018-11-25] MEDS ORDERED: OXYCODONE-ACETAMINOPHEN 5-325 MG TABLET ONE (12:37)
[2018-11-25] MEDS ORDERED: PROPOFOL INJ 200 MG/20 ML VIAL IV ONE (12:38)
[2018-11-25 12:41] VITALS: BP 131/81
--- NOTE | 2018-11-25 12:49 | Operative Report ---
Operative Report DATE OF SURGERY: 11/25/18 Operative Report: The risks benefits and alternatives of the procedure explained to the patient in detail and informed consent is obtained.A GIF Olympus video scope was inserted into the patient's mouth and hypopharynx, the esophagus is identified intubated and insufflated ,the scope was then advanced through the esophagus stomach and duodenum, retroflexion maneuver is done, the esophagus stomach and first and second portions of the duodenum examined. Patient has had previous work-up at previous institutions. PREOPERATIVE DIAGNOSIS: History of Landin's esophagus, nausea vomiting POSTOPERATIVE DIAGNOSIS: Erosive gastritis status post biopsy. Gastric polyp that is removed via snare polypectomy and retrieved. Hiatal hernia. Landin's esophagus status post ablation as per patient's request OPERATION: EGD with ablation. EGD with snare polypectomy. biopsy performed to rule out for Helicobacter pylori SURGEON: [employer] ANESTHESIA: LMAC TISSUE REMOVED OR ALTERED: As noted above. COMPLICATIONS: None. ESTIMATED BLOOD LOSS: None. INTRAOPERATIVE FINDINGS: As noted above. PROCEDURE: Patient tolerated the procedure well. No immediate postprocedure complications are noted. Patient is discharged in good condition. Discharge date 11/25/2018. Discharge diet: Regular. Discharge activity: Regular. 2 to 3-week follow-up to discuss findings. Patient is instructed to call the office or proceed to the emergency room should there be any further problems or questions. Wait on the pathology of the polyp and rule out for possible Helicobacter pylori.
== END 2018-11-25 13:05 | disposition home or self-care (01) ==
LOC: END 11:10
PROVIDERS: ATTEND Internal Medicine Gastroenterology
DX: K22.719 Barrett's esophagus with dysplasia, unspecified (principal); K29.50 Unspecified chronic gastritis without bleeding; K31.7 Polyp of stomach and duodenum; K44.9 Diaphragmatic hernia without obstruction or gangrene; I49.9 Cardiac arrhythmia, unspecified; Z79.899 Other long term (current) drug therapy
CPT/HCPCS: 43239; 43251; 88342 ×2; 88341 ×2; 88305 ×2; 00731; J3010; J2405; J2704; 43270; 45385; 731